=== PATIENT | female | born 1985 | race African-American/Black ===

== ENCOUNTER 2018-09-13 09:06 | Emergency (ER) | payer OTHER ==
[~2018-09-13] VITALS: Ht 167.6 cm; Wt 111.5 kg
[2018-09-13 09:18] VITALS: BP 139/81
[2018-09-13] MEDS ORDERED: HYDR200T80 MT (09:18)
[2018-09-13] MEDS ORDERED: VITAMIN D (09:18)
== END 2018-09-13 12:43 | disposition left against medical advice (07) ==
LOC: ER 11:36
DX: N61.0 Mastitis without abscess (principal)
CPT/HCPCS: 99283

== ENCOUNTER 2021-10-12 12:50 | Emergency (ER) | payer MEDICAID, OTHER ==
[~2021-10-12] VITALS: Ht 165.1 cm; Wt 106.0 kg
[~2021-10-12 12:50] MED LIST: HYDR200T80 MT; VITAMIN D
[2021-10-12 13:24] LABS: BASOPHILS % 0.5 % (0.0-2.0); EOSINOPHILS % 0.7 % (0.0-5.0); HEMATOCRIT. 37.2 % (36.0-48.0); LYMPHOCYTES % 28.8 % (20.0-50.0); MEAN CORPUSCULAR HEMOGLOBIN 20.8 pg (28.0-32.0); MEAN CORPUSCULAR VOLUME 64.2 fL (81.0-99.0); MEAN PLATELET VOLUME 9.4 fl (7.4-10.4); MONOCYTES % 6.7 % (2.0-8.0); NEUTROPHILS % 63.3 % (40.0-76.0); PLATELET 173 x1000/uL (130-400); RED BLOOD CELL COUNT 5.79 mill/uL (4.2-5.4); RED CELL DISTRIBUTION WIDTH 17.7 % (11.6-14.6)
[2021-10-12 13:34] LABS: CHLORIDE 106 mEq/L (98-107)
[2021-10-12 13:41] LABS: PLATELET ESTIMATE NORMAL
[2021-10-12] MEDS ORDERED: SODIUM CHLORIDE 0.9% 1,000 ML IV ONE (14:00)
[2021-10-12 14:31] LABS: PHOSPHORUS 3.2 mg/dL (2.5-4.9)
[2021-10-12 14:35] LABS: T4 FREE 1.24 ng/dL (0.76-1.46)
[2021-10-12 15:40] LABS: CLARITY URINE TURBID (CLEAR); COLOR URINE RED (YELLOW); KETONES URINE 4+ (NEGATIVE); LEUKOCYTE ESTERASE URINE 1+ (NEGATIVE); NITRITE URINE NEGATIVE (NEGATIVE); OCCULT BLOOD URINE 3+ (NEGATIVE); PROTEIN URINE 2+ (NEGATIVE); SPECIFIC GRAVITY URINE 1.032 (1.005-1.030); UROBILINOGEN URINE 0.2 E.U./dL (0.2-1.0)
[2021-10-12 15:51] LABS: *AMPHETAMINES SCREEN URINE NEGATIVE (NEGATIVE); *BARBITURATES SCREEN URINE NEGATIVE (NEGATIVE); *BENZODIAZEPINES SCREEN URINE NEGATIVE (NEGATIVE); *COCAINE SCREEN URINE NEGATIVE (NEGATIVE); METHADONE URINE SCREEN NEGATIVE (NEGATIVE); OPIATES URINE SCREEN NEGATIVE (NEGATIVE); PHENCYCLIDINE URINE SCREEN NEGATIVE (NEGATIVE)
[2021-10-12 15:52] LABS: CANNABINOID URINE SCREEN NEGATIVE (NEGATIVE)
[2021-10-12] MEDS ORDERED: MELA5TAB19 MT (16:17)
[2021-10-12] MEDS ORDERED: CHOL400D7 MT (16:17)
[2021-10-12] MEDS ORDERED: IBUPROFEN 400MG TABLET PO ONE (17:15)
[2021-10-12] MEDS ORDERED: IOHEXOL-350 100 ML BOTTLE ONE (18:21)
[2021-10-12 20:30] VITALS: BP 159/91
== END 2021-10-12 20:54 | disposition home or self-care (01) ==
LOC: ER 12:50
DX: R53.1 Weakness (principal); D25.9 Leiomyoma of uterus, unspecified; Z79.899 Other long term (current) drug therapy
CPT/HCPCS: 36415; 71045; 71275; 74174; 80053; 80305; 81003; 82533; 83735; 84100; 84439; 84443; 84484; 85025; 85379; 96360; 99285; J7030; Q9967; Z7610